=== PATIENT | male | born 1985 | race Caucasian/White ===

== ENCOUNTER 2017-12-05 19:34 | Inpatient (IN) | payer OTHER ==
[~2017-12-05] VITALS: Ht 182.9 cm; Wt 172.4 kg
[~2017-12-05 19:34] MED LIST: CLONAZEPAM1 MG PO; FLUOXETINE HCL40 MG PO; GEODON40 MG PO; KLONOPIN1 MG PO; LAMICTAL25 MG PO; MULTI-VITAMIN1 EAC4 PO; NEURONTIN300 MG PO; RISPERDAL1 MG PO; RISPERDAL2 MG PO; RISPERDAL4 MG PO; RISPERIDONE3 MG PO
[2017-12-05 20:35] LABS: HEMATOCRIT 37.7 % (38.0-50.0); HEMOGLOBIN 12.6 G/DL (12.5-16.6); MCH 28.3 PG (29.0-34.0); MCHC 33.4 G/DL (30.0-36.0); MCV 84.7 FL (86-99); PLATELET COUNT 259 K/uL (156-360); RBC DIS.WIDTH-CV 14.5 % (11.8-14.6); RBC DIS.WIDTH-SD 44.3 % (39-53); RED BLOOD COUNT 4.45 M/uL (4.00-5.50); WHITE BLOOD COUNT 10.6 K/uL (4.1-10.2)
[2017-12-05 20:47] LABS: CHLORIDE 106 mEq/L (99-109); POTASSIUM 3.6 mEq/L (3.7-5.4); SODIUM 139 mEq/L (136-147)
[2017-12-05 20:49] LABS: GLUCOSE 95 mg/dL (70-99)
[2017-12-05 20:52] LABS: SERUM ETHYL ALCOHOL < 10 mg/dL
[2017-12-05 20:53] LABS: CREATININE 1.1 mg/dL (0.6-1.3); GFR ESTIMATE (CALCULATED) > 59 mL/min/ (58.99-99999)
[2017-12-05 20:54] LABS: UREA NITROGEN (BUN) 14 mg/dL (9-23)
[2017-12-05 22:20] LABS: AMPHETAMINE NEGATIVE (500 ng/mL); BARBITURATES NEGATIVE (200 ng/mL); BENZODIAZEPINES NEGATIVE (150 ng/mL); BUPRENORPHINE NEGATIVE (10 ng/mL); COCAINE NEGATIVE (150 ng/mL); METHADONE NEGATIVE (200 ng/mL); METHAMPHETAMINE NEGATIVE (500 ng/mL); OPIATES (MORPHINE) NEGATIVE (100 ng/mL); OXYCODONE NEGATIVE (100 ng/mL); PHENCYCLIDINE NEGATIVE (25 ng/mL); PROPOXYPHENE NEGATIVE (300 ng/mL); THC CANNABINOIDS NEGATIVE (50 ng/mL); TRICYCLIC ANTIDEPRESSANTS NEGATIVE (300 ng/mL)
[2017-12-06] MEDS ORDERED: RISPERDAL3 MG PO (00:52)
[2017-12-06] MEDS ORDERED: ZOLOFT100 MG PO (01:06)
[2017-12-06 07:42] VITALS: BP 162/98
[2017-12-06 16:08] VITALS: BP 134/83
[2017-12-07 07:59] VITALS: BP 158/76
[2017-12-07 17:27] VITALS: BP 146/89
[2017-12-08 08:00] VITALS: BP 159/84
[2017-12-08 12:14] VITALS: BP 136/86
[2017-12-08 15:46] VITALS: BP 138/82
[2017-12-09 07:34] VITALS: BP 130/70
[2017-12-09 15:47] VITALS: BP 176/96
[2017-12-09 19:36] VITALS: BP 162/81
[2017-12-10 07:52] VITALS: BP 131/84
[2017-12-10] MEDS ORDERED: OLANZAPINE5 MG PO (08:23)
[2017-12-10] MEDS ORDERED: ZOLPIDEM TARTRAT5 MG PO (08:23)
[2017-12-10 15:41] VITALS: BP 186/102
[2017-12-10 16:56] VITALS: BP 127/74
[2017-12-11 07:24] VITALS: BP 152/75
== END 2017-12-11 12:19 | disposition home or self-care (01) | DRG 886 ==
LOC: EME 19:34 → 1WEST 22:42 → EDOF 22:42 → ENRESERV 12-06 01:04 → 1WEST 12-06 02:10
PROVIDERS: Emergency Medicine Emergency Medical Services
DX: F63.9 Impulse disorder, unspecified (principal); F63.81 Intermittent explosive disorder; F71 Moderate intellectual disabilities; F84.0 Autistic disorder; F31.9 Bipolar disorder, unspecified
CPT/HCPCS: 80048; 85027; 90837; 97150 GO; 97165 GO; 99281; 99285; G0480